=== PATIENT | male | born 1985 | race Caucasian/White ===

== ENCOUNTER 2021-06-16 14:33 | Outpatient (REF) | payer BC, SELFPAY ==
[2021-06-16 14:35] LABS: Calculated LDL 108 mg/dL (<100); Cholesterol 189 mg/dL (<200); HDL Cholesterol 52 mg/dL (40-60); Triglyceride 146 mg/dL (<150)
[2021-06-17 11:48] LABS: Syphilis Serology (RPR) Negative (Negative)
[2021-06-17 11:53] LABS: HIV-1/2 Ag & Ab Screen Negative (Negative)
[2021-06-17 12:14] LABS: Hepatitis C Ab w Rflx HCV PCR Negative (Negative)
[2021-06-17 14:40] LABS: Chlamydia Result Negative (Negative); GC Result Negative (Negative)
== END 2021-06-16 14:34 | disposition home or self-care (01) ==
LOC: NCHCN 14:33
PROVIDERS: Referring Provider Nurse Practitioner Family; Visit Provider Nurse Practitioner Family
DX: Z11.4 Encounter for screening for human immunodeficiency virus [HIV] (principal); Z11.3 Encounter for screening for infections with a predominantly sexual mode of transmission; Z11.59 Encounter for screening for other viral diseases; Z00.00 Encounter for general adult medical examination without abnormal findings
CPT/HCPCS: 80061; 86803; 87389; 87491; 87591; 86592

== ENCOUNTER 2023-06-20 11:20 | Outpatient (REF) | payer BC, SELFPAY ==
[2023-06-22 11:06] LABS: Lyme Ab w Rflx to Lyme Confirm Negative (Negative)
[2023-06-23 14:56] LABS: Anaplasma phagocytophilum Negative (Negative); B. miyamotoi PCR Negative (Negative); Babesia divergens/MO-1 Negative (Negative); Babesia duncani Negative (Negative); Babesia microti Negative (Negative); Ehrlichia chaffeensis Negative (Negative); Ehrlichia ewingii/canis Negative (Negative); Ehrlichia muris eauclairensis Negative (Negative)
== END 2023-06-20 11:21 | disposition home or self-care (01) ==
LOC: NCHCN 11:20
PROVIDERS: Visit Provider Family Medicine
DX: R53.83 Other fatigue (principal); R42 Dizziness and giddiness; Z11.8 Encounter for screening for other infectious and parasitic diseases
CPT/HCPCS: 87798; 86618

== ENCOUNTER 2023-07-17 16:45 | Outpatient (REF) | payer BC, SELFPAY | END 2023-07-17 16:46 | disposition home or self-care (01) | LOC: NCHCN 16:45 | PROVIDERS: Visit Provider Nurse Practitioner Family | DX: R00.2 Palpitations (principal) | CPT/HCPCS: 84443 ==

== ENCOUNTER 2023-08-01 13:15 | Outpatient (REF) | payer BC, SELFPAY ==
[2023-08-01 21:01] LABS: HCT 42.3 % (40.0-50.0); HGB 13.9 g/dL (13.5-17.5); MCH 28.4 pg (27.0-33.0); MCHC 32.9 % (32.0-36.0); MCV 86 fL (80-95); MPV 10.5 fL (8.0-11.0); Platelet Count 239 10^3/uL (130-400); RDW 12.8 % (11.8-14.1); RDW-SD 40.1 fL; WBC 4.66 10^3/uL (4.4-10.8)
[2023-08-01 21:18] LABS: ALT 25 U/L (16-63); AST 15 U/L (15-37); Albumin 4.6 g/dL (3.4-5.0); Alkaline Phosphatase 66 U/L (46-116); Anion Gap 5.9 mmol/L (3-11); BUN 11 mg/dL (7-18); Bilirubin, Total 0.4 mg/dL (0.2-1.0); CO2 28.1 mmol/L (21.0-32.0); CREATININE 0.9 mg/dL (0.70-1.30); Calcium 9.9 mg/dL (8.5-10.1); Chloride 105 mmol/L (98-107); Estimated GFR 110.73 (mL/min/1.73m2); Glucose 102 mg/dL (74-106); Potassium 4.8 mmol/L (3.5-5.1); Sodium 139 mmol/L (136-145); Total Protein 7.8 g/dL (6.4-8.2)
== END 2023-08-01 13:16 | disposition home or self-care (01) ==
LOC: NCHCN 13:15
PROVIDERS: PCP Physician Assistant; Visit Provider Physician Assistant
DX: R42 Dizziness and giddiness (principal)
CPT/HCPCS: 80053; 85027